=== PATIENT | female | born 1980 | race African-American/Black ===

== ENCOUNTER 2017-01-23 17:46 | Emergency (ER) | payer MEDICAID, OTHER ==
[~2017-01-23 17:46] MED LIST: ACYC800T PO; NYST100010 SS; RITO100 PO
[2017-01-23 17:52] VITALS: BP 115/83; PULSE 101; RESP 20; TEMP 99.7; O2SAT 94
--- NOTE | 2017-01-23 19:14 | PD ---
HPI Chief Complaint: Cold / Flu Symptoms Time Seen by Provider: 19:10 Travel History International Travel<30 days: No Contact w/Intl Traveler<30days: No Traveled to known affect area: No History of Present Illness HPI 36-year-old female with history of HIV presents to the emergency room for evaluation of multiple complaints. Patient states she feels fatigued, posterior neck pain, headache, right ear discomfort, scalp tenderness, and low back pain. Denies any trauma or injury to the back or neck. Patient has been off her medication for several months because of insurance reasons. States she was last evaluated in August and remembers having a number of 300 but does not remember what that number correlated to. Patient has been taking ibuprofen for pain without any relief in symptoms. She has leftover prescription of Lortab at home from 1 year ago and states she has not taken those because she prefers to deal with the pain. Pain is worsened with range of motion of the neck and back. States her headache feels like she is getting a migraine but she does not currently have one. Patient has history of low back pain. Denies any other chronic medical conditions or daily medications. She denies nausea, vomiting, double pain, dysuria, urgency, frequency, cough, congestion, sore throat. PFSH Past Medical History Anemia: Yes Autoimmune Disease: Yes (HIV) Blood Disorders: Yes Depression: Yes Cancer: No Cardiovascular Problems: No Diminished Hearing: No Endocrine: No Gastrointestinal Disorders: No Genitourinary: Yes (RIGHT OVARIAN CYST) Immune Disorder: Yes (HIV+) Medical other: Yes (HIV+, ANEMIA) Respiratory: No Immunizations Current: Yes Migraines: Yes Tetanus Vaccination: Unknown Influenza Vaccination: No ?: Not Menopausal: Yes : 3 Para: 3 Ovarian Cysts: Yes Past Surgical History Section: Yes (X3) Gynecologic Surgery: Yes (C SECTION X 3) Pacemaker: No Social History Alcohol Use: No Tobacco Use: No Substance Use: No Allergies-Medications (Allergen,Severity, Reaction): Coded Allergies: Amoxicillin (Verified Allergy, Severe, HIVES, 01/23/17) Reported Meds & Prescriptions Reported Meds & Active Scripts Active No Active Prescriptions or Reported Medications Review of Systems Except as stated in HPI: all other systems reviewed are Neg Physical Exam Narrative GENERAL: Well-developed, well-nourished female in no acute distress. Slightly febrile. Ambulatory. SKIN: Focused skin assessment warm/dry. HEAD: Atraumatic. Normocephalic. EYES: Pupils equal and round. No scleral icterus. No injection or drainage. ENT: No nasal bleeding or discharge. Mucous membranes pink and moist. EARS: Bilateral pinnae and external canals appear within normal limits. Bilateral tympanic membranes without erythema, dullness or perforation. NECK: Trachea midline. No JVD. Full range of motion. No significant midline tenderness. CARDIOVASCULAR: Regular rate and rhythm. No murmur appreciated. RESPIRATORY: No accessory muscle use. Clear to auscultation. Breath sounds equal bilaterally. No crackles, rales, wheezes, or rhonchi. BACK: No CVA tenderness. No rash. No point tenderness on palpation of the spine. 2+ Achilles and patellar reflexes are equal bilaterally. NEUROLOGICAL: Awake and alert. No obvious cranial nerve deficits. Motor grossly within normal limits. Normal speech. PSYCHIATRIC: Appropriate mood and affect; insight and judgment normal. Data Data Last Documented VS Vital Signs Date Time Temp Pulse Resp B/P Pulse Ox O2 Delivery O2 Flow Rate FiO2 01/23/17 20:46 90 100 01/23/17 18:36 Room Air 01/23/17 17:52 99.7 20 115/83 Orders Chest, Pa & Lat (01/23/17 ) Complete Blood Count With Diff (01/23/17 19:06) Comprehensive Metabolic Panel (01/23/17 19:06) Ketorolac Inj (Toradol Inj) (01/23/17 20:30) Acetamin-Hydrocod 325-5 Mg ([place] 5-325 (01/23/17 20:30) Labs Laboratory Tests Test 01/23/17 19:50 White Blood Count 3.9 TH/MM3 Red Blood Count 4.76 MIL/MM3 Hemoglobin 13.2 GM/DL Hematocrit 39.7 % Mean Corpuscular Volume 83.4 FL Mean Corpuscular Hemoglobin 27.8 PG Mean Corpuscular Hemoglobin 33.3 % Concent Red Cell Distribution Width 13.9 % Platelet Count 216 TH/MM3 Mean Platelet Volume 9.0 FL Neutrophils (%) (Auto) 49.4 % Lymphocytes (%) (Auto) 40.6 % Monocytes (%) (Auto) 8.1 % Eosinophils (%) (Auto) 0.1 % Basophils (%) (Auto) 1.8 % Neutrophils # (Auto) 1.9 TH/MM3 Lymphocytes # (Auto) 1.6 TH/MM3 Monocytes # (Auto) 0.3 TH/MM3 Eosinophils # (Auto) 0.0 TH/MM3 Basophils # (Auto) 0.1 TH/MM3 CBC Comment DIFF FINAL Differential Comment Sodium Level 139 MEQ/L Potassium Level 3.7 MEQ/L Chloride Level 105 MEQ/L Carbon Dioxide Level 23.7 MEQ/L Anion Gap 10 MEQ/L Blood Urea Nitrogen 11 MG/DL Creatinine 0.76 MG/DL Estimat Glomerular Filtration 104 ML/MIN Rate Random Glucose 90 MG/DL Calcium Level 8.7 MG/DL Total Bilirubin 0.6 MG/DL Aspartate Amino Transf 26 U/L (AST/SGOT) Alanine Aminotransferase 23 U/L (ALT/SGPT) Alkaline Phosphatase 70 U/L Total Protein 8.4 GM/DL Albumin 4.1 GM/DL [facility] Medical Decision Making Medical Screen Exam Complete: Yes Emergency Medical Condition: Yes Medical Record Reviewed: Yes Differential Diagnosis Influenza, viral syndrome, upper respiratory infection, HIV Narrative Course 36-year-old female with history of HIV untreated with meds presents to the emergency room for evaluation of multiple complaints including fatigue, headache , neck pain, middle back pain, and low back pain for the past 2 days. Patient also reports chills. Denies IV drug use. She is slightly febrile here. Physical exam is essentially unremarkable. No evidence of bacterial infection in the ears, nose, throat, sinuses, or lungs. Chest x-ray is negative for cardiopulmonary or thoracic spine abnormalities. No indication for cervical spine or lumbar spine imaging at this time the patient had no trauma or fall. Patient was offered Toradol and Lortab for pain. She declined both stating Toradol does not help her and that she cannot take pills. CBC and CMP are unremarkable. Patient likely has viral infection. I spoke to my attending physician, Dr. Diamond, about patient's immunocompromised state and elevated temperature. As we cannot find a focal bacterial source, patient will be discharged with instructions to follow-up with her primary care physician and infectious disease physician or return for worsening symptoms. She understands and agrees to plan. Diagnosis Primary Impression: Viral syndrome Referrals: Primary Care Physician Patient Instructions: General Instructions, Viral Syndrome (ED) Additional Instructions: Rest and drink plenty of fluids. Take Robaxin as directed, as needed for pain. Take ibuprofen with food as directed, as needed for pain. Apply ice to the affected area for 20 minutes at a time, as needed for pain and swelling. Follow-up with a primary care physician. Return to the emergency room for worsening symptoms. Scripts No Active Prescriptions or Reported Meds Disposition: 01 DISCHARGE HOME Condition: Stable Jeaneth Yung Jan 23, 2017 19:14
--- NOTE | 2017-01-23 19:32 | RADRPT ---
EXAM DATE/TIME: 01/23/2017 19:17 [facility] COMPARISON: CHEST PA & LAT, April 22, 2013, 19:22. INDICATIONS : Short of breath. MEDICAL HISTORY : None. SURGICAL HISTORY : None. ENCOUNTER: Initial ACUITY: 4 - 6 days PAIN SCORE: 7/10 LOCATION: Bilateral chest FINDINGS: PA and lateral views of the chest demonstrate the lungs to be symmetrically aerated without evidence of mass, infiltrate or effusion. The cardiomediastinal contours are unremarkable. Osseous structure s are intact. CONCLUSION: No acute disease. Gabe Shea MD on January 23, 2017 at 19:30 Board Certified Radiologist. This report was verified electronically.
[2017-01-23 19:55] LABS: AUTOMATED NEUTROPHIL # 1.9 TH/MM3 (1.8-7.7); BASOPHIL # 0.1 TH/MM3 (0-0.2); BASOPHIL % 1.8 % (0.0-2.0); EOSINOPHIL % 0.1 % (0.0-4.0); HEMATOCRIT 39.7 % (35.0-46.0); HEMO FLAGS DIFF FINAL; LYMPH % 40.6 % (9.0-44.0); LYMPHOCYTE # 1.6 TH/MM3 (1.0-4.8); MEAN CELL VOLUME 83.4 FL (80.0-100.0); MEAN CORPUSCULAR HEMOGLOBIN 27.8 PG (27.0-34.0); MEAN CORPUSCULAR HGB CONC 33.3 % (32.0-36.0); MONO % 8.1 % (0.0-8.0); NEUT % 49.4 % (16.0-70.0); PLATELET COUNT 216 TH/MM3 (150-450); RED BLOOD COUNT 4.76 MIL/MM3 (4.00-5.30); RED CELL DISTRIBUTION WIDTH 13.9 % (11.6-17.2); WHITE BLOOD COUNT 3.9 TH/MM3 (4.0-11.0)
[2017-01-23 20:05] LABS: CHLORIDE 105 MEQ/L (98-107); POTASSIUM 3.7 MEQ/L (3.5-5.1); SODIUM (NA) 139 MEQ/L (136-145)
[2017-01-23 20:09] LABS: ANION GAP 10 MEQ/L (5-15); BICARBONATE 23.7 MEQ/L (21.0-32.0); BLOOD UREA NITROGEN 11 MG/DL (7-18)
[2017-01-23 20:12] LABS: ALT (GPT) 23 U/L (10-53); AST (GOT) 26 U/L (15-37)
[2017-01-23 20:13] LABS: GLOMERULAR FILTRATION RATE 104 ML/MIN (>89)
[2017-01-23 20:14] LABS: TOTAL BILIRUBIN ADULT 0.6 MG/DL (0.2-1.0)
[2017-01-23 20:15] LABS: ALKALINE PHOSPHATASE 70 U/L (45-117)
[2017-01-23] MEDS ORDERED: ACETAMINOPHEN/HYDROcodone 325 MG/5 MG TAB PO ONE (20:30)
[2017-01-23] MEDS ORDERED: KETOROLAC TROMETHAMINE 60 MG/2 ML (IM) VIAL IM ONE (20:30)
[2017-01-23 20:46] VITALS: PULSE 90; O2SAT 100
== END 2017-01-23 20:56 | disposition home or self-care (01) ==
LOC: PHED 17:46 → PHEFT 20:56
DX: B34.9 Viral infection, unspecified (principal); B20 Human immunodeficiency virus [HIV] disease
CPT/HCPCS: 71020; 80053; 85025; 99284